=== PATIENT | female | born 1995 | race Caucasian/White ===

== ENCOUNTER 2017-10-25 13:49 | Emergency (ER) | payer OTHER ==
[~2017-10-25] VITALS: Ht 172.7 cm; Wt 110.7 kg
[2017-10-25 13:59] VITALS: BP 141/84; PULSE 115; TEMP 99.1
== END 2017-10-25 15:12 | disposition home or self-care (01) ==
LOC: COL.ER 13:49
DX: S00.93XA Contusion of unspecified part of head, initial encounter (principal); Z87.891 Personal history of nicotine dependence; Z96.22 Myringotomy tube(s) status; Z98.890 Other specified postprocedural states; V43.62XA Car passenger injured in collision with other type car in traffic accident, initial encounter

== ENCOUNTER → 2019-12-04 | Outpatient (CLI) | payer OTHER | LOC: COL.RAD | DX: N13.39 Other hydronephrosis (principal); Z64.0 Problems related to unwanted pregnancy; N20.0 Calculus of kidney | CPT/HCPCS: Q9967 ==